=== PATIENT | male | born 1975 ===

== ENCOUNTER 2018-03-21 07:14 | Emergency (ER) | payer SELFPAY ==
[2018-03-21 07:19] VITALS: BMI 20.5
[2018-03-21 07:22] VITALS: BP 133/85; PULSE 68; RESP 18; TEMP 97.5; O2SAT 94
--- NOTE | 2018-03-21 07:45 | C.PDOC ---
History Of Present Illness 43 year old male with a history of COPD presents to the emergency department requesting detox from heroin. Patient states that he uses heroin intranasally, and last used it yesterday morning. Patient states that he feels like he's going through withdrawal, but otherwise has no active complaints at this time. Time Seen by Provider: 03/21/18 07:32 Chief Complaint (Nursing): Substance Abuse History Per: Patient History/Exam Limitations: no limitations Onset/Duration Of Symptoms: Days (1) Current Symptoms Are (Timing): Still Present Suicide/Self Injury Attempted (Context): None Modifying Factor(s): Other (heroin) Associated Symptoms: denies: Suicidal Thoughts, Suicidal Plan, Other Past Medical History Reviewed: Historical Data, Nursing Documentation, Vital Signs Vital Signs: Last Vital Signs Temp 97.5 F L 03/21/18 07:19 Pulse 68 03/21/18 07:19 Resp 18 03/21/18 07:19 BP 133/85 03/21/18 07:19 Pulse Ox 94 L 03/21/18 07:19 - Medical History PMH: COPD Surgical History: No Surg Hx Family History: States: No Known Family Hx - Social History Hx Tobacco Use: Yes Hx Alcohol Use: No Hx Substance Use: Yes (heroin) - Immunization History Hx Tetanus Toxoid Vaccination: No Hx Influenza Vaccination: No Hx Pneumococcal Vaccination: No Review Of Systems Except As Marked, All Systems Reviewed And Found Negative. Constitutional: Negative for: Fever, Chills Gastrointestinal: Negative for: Nausea, Vomiting, Diarrhea Physical Exam - Physical Exam Appears: Non-toxic, No Acute Distress, Other (appears anxious, fidgeting) Head: Atraumatic, Normacephalic Eye(s): bilateral: Normal Inspection, PERRL, EOMI Neck: Normal, Supple Chest: Symmetrical, No Tenderness Respiratory: No Accessory Muscle Use Extremity: Normal ROM (all extremities) Neurological/Psych: Oriented x3, Normal Speech, Normal Cognition ED Course And Treatment O2 Sat by Pulse Oximetry: 94 (RA) - Physician Consult Information Time Consulting Physician Contacted: 07:53 Physician Contacted: Shade Thurston Outcome Of Conversation: Dr. Thurston was contacted regarding the availability of detox beds, he stated that there are no pending discharges as of right now, and that the patient will not be able to get a bed. Disposition Counseled Patient/Family Regarding: Diagnosis, Need For Followup - Disposition Disposition: HOME/ ROUTINE Disposition Time: 07:53 Condition: STABLE Additional Instructions: Follow up with out patient treatment as indicated by the crisis team. Instructions: Opioid Use Disorder Forms: [facility] ([facility]), General Discharge Instructions - POA Present On Arrival: None - Clinical Impression Clinical Impression: Drug dependence - Scribe Statement The provider has reviewed the documentation as recorded by the Scribe (Dominic Craven) Provider Attestation: All medical record entries made by the Scribe were at my direction and personally dictated by me. I have reviewed the chart and agree that the record accurately reflects my personal performance of the history, physical exam, medical decision making, and the department course for this patient. I have also personally directed, reviewed, and agree with the discharge instructions and disposition.
== END 2018-03-21 08:05 | disposition home or self-care (01) ==
LOC: C.ER 07:14
DX: F19.20 Other psychoactive substance dependence, uncomplicated (principal)